=== PATIENT | male | born 2000 | race Caucasian/White ===

== ENCOUNTER 2018-07-23 14:04 | Emergency (ER) | payer OTHER ==
[~2018-07-23] VITALS: Ht 172.7 cm; Wt 62.6 kg
[~2018-07-23 14:04] MED LIST: NOHOMEMEDICATIONS; PENICILLIN V P250 MG PO; TRIAMCINOLONE A80 G2 TOP; VENTOLIN HFA 1818 GM INH
[2018-07-23] MEDS ORDERED: MEDROLDOSEPACK PO (15:53)
[2018-07-23] MEDS ORDERED: AMOXICILLIN500 M1 PO (15:53)
[2018-07-23 16:18] VITALS: BP 135/88
== END 2018-07-23 16:19 | disposition home or self-care (01) ==
LOC: M.ERS 14:04
DX: Z20.818 Contact with and (suspected) exposure to other bacterial communicable diseases (principal)